=== PATIENT | female | born 1990 | race Caucasian/White ===

== ENCOUNTER 2020-06-06 15:37 | Emergency (ER) | payer OTHER, MEDICAID ==
[~2020-06-06] VITALS: Ht 160 cm; Wt 61.2 kg
[2020-06-06 15:43] VITALS: BP 130/92
--- NOTE | 2020-06-06 15:44 | NUR ---
came in for RLQ pain 2hrs [employer] 8/10 pain scale, non radiating, to ER bed 9, hooked to color television console monitor, BP cuff and POX, changed to hosp gown, warm blanket provided, patient AAO x 4, breathing even and unlabored, NAD noted. awaiting MD ley.
--- NOTE | 2020-06-06 16:22 | NUR ---
DEVIKA REGALADO AT BEDSIDE
--- NOTE | 2020-06-06 16:35 | NUR ---
Patient does not wish to proceed with medical care recommended by Dirk FRANKS. Patient given information related to possible complications, up to and including , which could occur as a result of leaving the hospital at this time. Patient verbalizes understanding of risks involved due to leaving against medical advice. Patient has signed AMA form.
[2020-06-06 16:41] LABS: APPEARANCE,URINE CLEAR (CLEAR); BILIRUBIN,URINE NEGATIVE (NEGATIVE); BLOOD, URINE SMALL Ery/uL (NEGATIVE); COLOR,URINE YELLOW (YELLOW); KETONES,URINE NEGATIVE (NEGATIVE); LEUKOCYTE ESTERASE ,URINE NEGATIVE (NEGATIVE); NITRITE, URINE NEGATIVE (NEGATIVE); PH,URINE 5.5 (5.0-8.0); PROTEIN,URINE NEGATIVE (NEGATIVE); UGLUCOSE NEGATIVE (NEGATIVE); UROBILINOGEN,URINE 0.2 EU/dL (0.2)
== END 2020-06-06 16:35 | disposition left against medical advice (07) ==
LOC: ER 15:41
DX: R10.31 Right lower quadrant pain (principal); R10.2 Pelvic and perineal pain; R11.0 Nausea
CPT/HCPCS: 81000-TC; 84703-TC